=== PATIENT | male | born 1985 | race American Indian/Alaskan Native ===

== ENCOUNTER 2016-09-15 21:19 | Emergency (ER) | payer SELFPAY ==
[2016-09-15 21:27] VITALS: TEMP 99.4
[2016-09-15] MEDS ORDERED: Sodium Chloride 0.9% 2,000 ML IV ONE (21:50)
[2016-09-15] MEDS ORDERED: Sodium Chloride 0.9% 2,000 ML ONE (21:57)
[2016-09-15 22:08] LABS: BASO % 0.3 % (0.0-2.0); CHLORIDE 92 mmol/L (98-107); LYMPH # 0.8 K/uL (1.0-4.3); LYMPH % 13.4 % (20.0-40.0); MEAN CELL VOLUME 86.4 fL (80.0-94.0); MEAN CORPUSCULAR HEMOGLOBIN 27.8 pg (27.0-31.0); MEAN CORPUSCULAR HGB CONC 32.2 g/dL (33.0-37.0); MEAN PLATELET VOLUME 9.1 fL (7.2-11.7); MONO # 0.9 K/uL (0.0-0.8); MONO % 15.9 % (0.0-10.0); NRBC % 0.1 % (0.0-2.0); POTASSIUM 3.9 mmol/L (3.6-5.2); RED CELL DISTRIBUTION WIDTH 12.6 % (11.5-14.5); SODIUM 130 mmol/L (132-148); WHITE BLOOD COUNT 5.8 K/uL (4.8-10.8)
[2016-09-15 22:10] LABS: ALB/GLOB RATIO 1.2 (1.0-2.1); AST/SGOT 31 U/L (17-59); BILIRUBIN,TOTAL 0.5 mg/dL (0.2-1.3); CARBON DIOXIDE 24 mmol/L (22-30); GFR AFRICAN-AMERICAN > 60; TOTAL PROTEIN 7.1 g/dL (6.3-8.3)
[2016-09-15 22:11] LABS: ALKALINE PHOSPHATASE 44 U/L (38-126); ALT/SGPT 18 U/L (21-72); BLOOD UREA NITROGEN 14 mg/dL (9-20); GLUCOSE,RANDOM 81 mg/dL (75-110)
[2016-09-15 22:27] LABS: RBC URINE < 1 /hpf (0-3); URINE BACTERIA RARE (<OCC); URINE BILIRUBIN NEGATIVE (NEGATIVE); URINE BLOOD NEGATIVE (NEGATIVE); URINE COLOR Yellow (YELLOW); URINE GLUCOSE (UA) NORMAL (Normal); URINE KETONE NEGATIVE (NEGATIVE); URINE LEUKOCYTE ESTERASE NEG Leu/uL (Negative); URINE PROTEIN NEGATIVE (NEGATIVE); URINE UROBILINOGEN NORMAL mg/dL (0.2-1.0); WBC URINE 1 /hpf (0-5)
--- NOTE | 2016-09-15 22:32 | C.PDOC ---
History Of Present Illness A 31 year old male is brought into the ED by EMS for nausea, vomiting, and diarrhea for 2 days. There are no exacerbating or relieving factors. Patient denies any chest pain, shortness of breath, fever, chills, cough, or any other complaints. Time Seen by Provider: 09/15/16 21:40 Chief Complaint (Nursing): GI Problem History Per: Patient History/Exam Limitations: no limitations Onset/Duration Of Symptoms: Days (2) Current Symptoms Are (Timing): Still Present Severity: Mild Associated Symptoms: Nausea, Vomiting, Diarrhea. denies: Fever, Chills Exacerbating Factors: None Alleviating Factors: None Last Bowel Movement: Today Recent travel outside of the [place]: No Past Medical History Reviewed: Historical Data, Nursing Documentation, Vital Signs Vital Signs: Last Vital Signs Temp 99.4 F 09/15/16 21:21 Pulse 75 09/15/16 21:21 Resp 20 09/15/16 21:21 BP 106/64 09/15/16 21:21 Pulse Ox 99 09/15/16 22:32 - Medical History PMH: HTN (uncompliant with unknown meds) Family History: States: Unknown Family Hx - Social History Hx Alcohol Use: No Hx Substance Use: No - Immunization History Hx Tetanus Toxoid Vaccination: No Hx Influenza Vaccination: No Hx Pneumococcal Vaccination: No Review Of Systems Except As Marked, All Systems Reviewed And Found Negative. Constitutional: Negative for: Fever, Chills Cardiovascular: Negative for: Chest Pain Respiratory: Negative for: Cough, Shortness of Breath Gastrointestinal: Positive for: Nausea, Vomiting, Diarrhea Physical Exam - Physical Exam Appears: Well, Non-toxic Skin: Normal Color, Warm, Dry, No Rash Head: Atraumatic, Normacephalic Eye(s): bilateral: Normal Inspection Ear(s): Bilateral: Normal Nose: Normal Oral Mucosa: Moist Throat: Normal, No Erythema, No Exudate Neck: Normal ROM, Supple Chest: Symmetrical Cardiovascular: Rhythm Regular Respiratory: Normal Breath Sounds, No Rales, No Rhonchi, No Wheezing Gastrointestinal/Abdominal: Soft, No Tenderness, No Guarding, No Rebound Extremity: Normal ROM, No Tenderness Neurological/Psych: Oriented x3, Normal Speech, Normal Cognition ED Course And Treatment - Laboratory Results Result Diagrams: 09/15/16 21:57 09/15/16 21:57 Lab Interpretation: Normal (ua/tox neg.) O2 Sat by Pulse Oximetry: 99 Reevaluation Time: 22:32 Reassessment Condition: Improved Medical Decision Making Medical Decision Making: gastroenteritis- normal w/u Disposition Doctor Will See Patient In The: Office Counseled Patient/Family Regarding: Studies Performed, Diagnosis - Disposition Referrals: [facility] [Outside] Disposition: HOME/ ROUTINE Disposition Time: 22:32 Condition: GOOD Additional Instructions: drink plenty of fluids Pepcid 20 mg @ night to lower stomach acid zofran ODT 4 mg (for nausea and vomiting) every 6-8 hours as needed. Dissolves on your tongue. BRAT diet: Bananas, white rice, applesauce, toast/bread. do NOT resume your "normal" diet for 2 days or you will have more diarrhea. Follow-up in our Clinic as needed. Prescriptions: Ondansetron ODT [Zofran ODT] 4 mg PO Q8H PRN #6 odt PRN Reason: Nausea/Vomiting Instructions: Gastroenteritis (ED) - Clinical Impression Clinical Impression: Gastroenteritis - Scribe Statement The provider has reviewed the documentation as recorded by the Scribe Roman Quach All medical record entries made by the Scribe were at my direction and personally dictated by me. I have reviewed the chart and agree that the record accurately reflects my personal performance of the history, physical exam, medical decision making, and the department course for this patient. I have also personally directed, reviewed, and agree with the discharge instructions and disposition.
[2016-09-15 22:49] VITALS: BP 111/62; PULSE 85; RESP 16
[2016-09-15 22:50] VITALS: O2SAT 99
== END 2016-09-15 22:48 | disposition home or self-care (01) ==
LOC: C.ER 21:19
DX: K52.9 Noninfective gastroenteritis and colitis, unspecified (principal)
CPT/HCPCS: 80053; 81001; 83690; 85025; 96361; 96374; 96375; 99285; G0480; J1885; J2405; J7040